=== PATIENT | female | born 1935 | race Caucasian/White ===

== ENCOUNTER 2020-08-21 11:38 | Emergency (ER) | payer OTHER ==
[~2020-08-21 11:38] MED LIST: BACTRIM DS TAB1 EACH PO; KEFLEX250 MG PO; PREDNISONE 20MG20 MG PO
[2020-08-21] MEDS ORDERED: CEPHALEXIN500 MG PO (13:15)
== END 2020-08-21 13:30 | disposition home or self-care (01) ==
LOC: FER 11:38
DX: S61.411A Laceration without foreign body of right hand, initial encounter (principal); I10 Essential (primary) hypertension; E78.5 Hyperlipidemia, unspecified; Z79.899 Other long term (current) drug therapy; W18.09XA Striking against other object with subsequent fall, initial encounter; Y92.531 Health care provider office as the place of occurrence of the external cause
CPT/HCPCS: 73130

== ENCOUNTER 2021-10-13 08:54 | Emergency (ER) | payer OTHER ==
[~2021-10-13] VITALS: Ht 157.5 cm; Wt 48.1 kg
[~2021-10-13 08:54] MED LIST changes: +CEPHALEXIN500 MG PO
[2021-10-13] MEDS ORDERED: LISINOPRIL20 MG PO (09:11)
[2021-10-13] MEDS ORDERED: LOPRESSOR50 MG PO (09:11)
[2021-10-13] MEDS ORDERED: MONTELUKAST SOD10 MG PO (09:12)
[2021-10-13] MEDS ORDERED: FLUOROMETHOLONE5 ML EYEBOTH (09:13)
[2021-10-13] MEDS ORDERED: PRESERVISION A1 EACH PO (09:15)
[2021-10-13] MEDS ORDERED: DAILY VALUE1 EACH PO (09:15)
[2021-10-13 09:59] LABS: BASOPHIL 0.3 % (0-2); EOSINOPHIL 0 % (0-7); HCT 40.6 % (37.0-47.0); HGB 12.8 g/dl (12.5-16.0); LYMPHOCYTE 2.7 % (15-48); MCH 27.1 pg (25.0-31.0); MCHC 31.5 g/dL (32.0-36.0); MONOCYTE 6.1 % (0-12); MPV 9.7 fL (6.0-9.5); NEUTROPHIL 90.4 % (41-80); NRBC 0; PLT 274 K/uL (150-400); RBC 4.72 M/uL (4.20-5.40); RDW 16.1 % (11.5-14.0); WBC 11.5 K/uL (4.0-10.5)
[2021-10-13 10:21] LABS: BUN/CREAT RATIO (CALC) 16.4 RATIO; CREATININE 1.71 mg/dL (0.51-0.95); POTASSIUM 4.2 mmol/L (3.5-5.1)
[2021-10-13] MEDS ORDERED: ONDANSETRON ODT4 MG PO (12:12)
== END 2021-10-13 13:07 | disposition home or self-care (01) ==
LOC: FER 08:54
PROVIDERS: Emergency Medicine
DX: A08.4 Viral intestinal infection, unspecified (principal); N17.9 Acute kidney failure, unspecified; I10 Essential (primary) hypertension
CPT/HCPCS: 36415; 74022; 80048; 85025; J2405; J7030